=== PATIENT | male | born 1970 | race Caucasian/White ===

== ENCOUNTER 2020-07-12 12:56 | Inpatient (IN) | payer MEDICARE, MEDICAID ==
[~2020-07-12] VITALS: Ht 188 cm; Wt 101.8 kg
[2020-07-12] MEDS ORDERED: SODIUM CHLORIDE 0.9% 1,000 ML IV ONE (13:15)
[2020-07-12] MEDS ORDERED: PIPERACILLIN-TAZOB 3.375GM 100 ML IV ONE (13:15)
[2020-07-12] MEDS ORDERED: ACETAMINOPHEN 325 MG TAB PO ONE (13:45)
[2020-07-12 15:12] LABS: Basophils # (auto) 0 10 ^3/uL (0-0.2); Basophils % (auto) 0.2 % (0.0-2.0); Eosinophils # (auto) 0 10 ^3/uL (0-0.8); Eosinophils % (auto) 0.1 % (0.0-7.0); Hematocrit 32.9 % (41.0-53.0); Hemoglobin 11.2 g/dL (13.5-17.5); Lymphocytes # (auto) 0.8 10 ^3/uL (0.4-5.4); Mean Corpuscular Hemoglobin 27.2 pg (28.0-32.0); Mean Corpuscular Hgb Conc. 34.1 g/dL (32.0-36.0); Mean Corpuscular Volume 79.9 fL (80.0-100.0); Monocytes # (auto) 1.2 10 ^3/uL (0-1.3); Monocytes % (auto) 8.9 % (0.0-12.0); Neutrophils % (auto) 84.8 % (37.0-80.0); Nucleated Red Blood Cells % 0.1 %; Platelet Count (auto) 275 10^3/uL (140-450); Red Blood Cells 4.11 10^6/uL (4.5-5.90); Red Cell Distribution Width 13.6 % (11.8-14.3); White Blood Cell 12.9 10^3/uL (4.4-10.8)
[2020-07-12 15:27] LABS: INR 1.28 (0.9-1.15); Partial Thromboplastin Time 29.6 sec (23.0-31.2)
[2020-07-12] MEDS ORDERED: ONDANSETRON HCL 4 MG/2 ML VIAL IV ONE (15:30)
[2020-07-12 15:34] LABS: Alanine Aminotransferase 32 U/L (16-61); Albumin 1.9 g/dL (3.4-5.0); Anion Gap 8 (5-15); Aspartate Aminotransferase 27 U/L (15-37); BUN/Creatinine Ratio 15.4; Blood Urea Nitrogen 16 mg/dL (7-18); Calcium 8.2 mg/dL (8.5-10.1); Carbon Dioxide 27 mmol/L (21-32); Chloride 98 mmol/L (98-107); GFR African American 97 mL/min; GFR Non-African American 80 mL/min; Glucose 89 mg/dL (74-106); Sodium 133 mmol/L (136-145)
[2020-07-12 15:39] LABS: Alkaline Phosphatase 341 U/L (45-117); Bilirubin, Total 0.7 mg/dL (0.2-1.0); Total Protein 6.8 g/dL (6.4-8.2)
[2020-07-12] MEDS ORDERED: TEMAZEPAM 15 MG CAP PO PRN (17:15)
[2020-07-12] MEDS ORDERED: NITROGLYCERIN 0.4 MG SL TAB SL PRN (17:15)
[2020-07-12] MEDS ORDERED: MORPHINE SULF INJ 2 MG/ML SYRINGE 1ML IV PRN (17:15)
[2020-07-12] MEDS ORDERED: DOCUSATE SOD 100 MG CAP PO PRN (17:15)
[2020-07-12] MEDS ORDERED: DEXTROSE (50%) 50ML SYRG IV PRN (17:15)
[2020-07-12] MEDS ORDERED: MORPHINE SULFATE 4 MG/ML SYR/VIAL IV PRN (17:15)
[2020-07-12] MEDS: ONDANSETRON HCL 4 MG/2 ML VIAL IV PRN (21:54)
[2020-07-12] MEDS: InsuLIN REG 1unit/0.01ml Soln (100units/ml) SC SCH (22:00)
[2020-07-12] MEDS: FAMOTIDINE 20 MG TAB PO SCH (23:30)
[2020-07-12] MEDS: ATORVASTATIN 20 MG TAB PO SCH (23:30)
[2020-07-12] MEDS: PIPERACILLIN-TAZOB 3.375GM 100 ML IV SCH (23:30)
[2020-07-12] MEDS: ACCU-CHEK COMFORT CURVE STRIP VI SCH (23:30)
[2020-07-12] MEDS: ASCORBIC ACID 500 MG TAB PO SCH (23:31)
[2020-07-13] MEDS: ACETAMINOPHEN 325 MG TAB PO PRN (00:29)
[2020-07-13 04:44] VITALS: BP 125/72
[2020-07-13 05:00] VITALS: BP 125/72
[2020-07-13] MEDS: PIPERACILLIN-TAZOB 3.375GM 100 ML IV SCH ×3 (06:47→21:17)
[2020-07-13] MEDS: InsuLIN REG 1unit/0.01ml Soln (100units/ml) SC SCH ×4 (06:47→21:20)
[2020-07-13] MEDS: ACCU-CHEK COMFORT CURVE STRIP VI SCH ×4 (06:47→21:19)
[2020-07-13] MEDS ORDERED: ASPI81CH59 PO (08:58)
[2020-07-13] MEDS ORDERED: PREG150C PO (08:58)
[2020-07-13] MEDS ORDERED: ATOR20TA50 PO (08:58)
[2020-07-13] MEDS ORDERED: ENAL2.5T7 PO (08:58)
[2020-07-13] MEDS ORDERED: RIVA10TA PO (08:58)
[2020-07-13 09:00] VITALS: BP 112/61
[2020-07-13] MEDS: ASCORBIC ACID 500 MG TAB PO SCH ×2 (09:33→21:18)
[2020-07-13] MEDS: MULTIPLE VITAMIN TAB PO SCH (09:33)
[2020-07-13] MEDS: FAMOTIDINE 20 MG TAB PO SCH ×2 (09:33→21:18)
[2020-07-13] MEDS: ZINC SULFATE 220mg CAP or TAB PO SCH (09:33)
[2020-07-13 09:37] LABS: Basophils # (auto) 0 10 ^3/uL (0-0.2); Basophils % (auto) 0.2 % (0.0-2.0); Eosinophils # (auto) 0.2 10 ^3/uL (0-0.8); Eosinophils % (auto) 1.5 % (0.0-7.0); Hematocrit 30.4 % (41.0-53.0); Hemoglobin 10.6 g/dL (13.5-17.5); Lymphocytes # (auto) 1.1 10 ^3/uL (0.4-5.4); Lymphocytes % (auto) 8.7 % (10.0-50.0); Mean Corpuscular Hgb Conc. 34.9 g/dL (32.0-36.0); Mean Corpuscular Volume 80.2 fL (80.0-100.0); Monocytes # (auto) 1.1 10 ^3/uL (0-1.3); Monocytes % (auto) 8.7 % (0.0-12.0); Neutrophils % (auto) 80.9 % (37.0-80.0); Platelet Count (auto) 260 10^3/uL (140-450); Red Blood Cells 3.79 10^6/uL (4.5-5.90); Red Cell Distribution Width 13.9 % (11.8-14.3); White Blood Cell 12.3 10^3/uL (4.4-10.8)
[2020-07-13 09:45] LABS: Albumin 1.7 g/dL (3.4-5.0); Potassium 3.7 mmol/L (3.5-5.1)
[2020-07-13 09:51] LABS: BUN/Creatinine Ratio 16.3; Bilirubin, Total 0.7 mg/dL (0.2-1.0); Total Protein 6.4 g/dL (6.4-8.2)
[2020-07-13] MEDS: HYDROmorphone HCL 2 MG/ML VL IV PRN ×3 (11:24→21:19)
[2020-07-13] MEDS: ONDANSETRON HCL 4 MG/2 ML VIAL IV PRN ×3 (11:24→21:19)
[2020-07-13] MEDS ORDERED: PREGABALIN CAPSULE 75 MG CAP PO ONE (12:00)
[2020-07-13 13:00] VITALS: BP 122/74
[2020-07-13 17:00] VITALS: BP 121/68
[2020-07-13] MEDS: PREGABALIN CAPSULE 75 MG CAP PO SCH (21:18)
[2020-07-13] MEDS: ATORVASTATIN 20 MG TAB PO SCH (21:18)
[2020-07-13 21:59] VITALS: BP 121/66
[2020-07-13 22:37] LABS: Urine Bacteria NONE SEEN /hpf (None Seen); Urine Blood 1+ /uL (Negative); Urine Specific Gravity 1.034 (1.001-1.035); Urine WBC 3 /hpf (0 - 3)
[2020-07-14] MEDS: HYDROmorphone HCL 2 MG/ML VL IV PRN ×5 (01:35→19:45)
[2020-07-14] MEDS: ONDANSETRON HCL 4 MG/2 ML VIAL IV PRN (01:35)
[2020-07-14 05:19] VITALS: BP 115/69
[2020-07-14] MEDS: PIPERACILLIN-TAZOB 3.375GM 100 ML IV SCH ×3 (05:53→22:01)
[2020-07-14] MEDS: ACCU-CHEK COMFORT CURVE STRIP VI SCH ×4 (06:33→21:45)
[2020-07-14] MEDS: InsuLIN REG 1unit/0.01ml Soln (100units/ml) SC SCH ×4 (06:34→22:01)
[2020-07-14 08:00] VITALS: BP 119/67
[2020-07-14] MEDS: PREGABALIN CAPSULE 75 MG CAP PO SCH ×2 (10:47→21:45)
[2020-07-14] MEDS: MULTIPLE VITAMIN TAB PO SCH (10:47)
[2020-07-14] MEDS: ZINC SULFATE 220mg CAP or TAB PO SCH (10:47)
[2020-07-14] MEDS: FAMOTIDINE 20 MG TAB PO SCH ×2 (10:48→21:45)
[2020-07-14] MEDS: ENALAPRIL MALEATE 2.5 MG TAB PO SCH (10:48)
[2020-07-14] MEDS: ASCORBIC ACID 500 MG TAB PO SCH ×2 (10:48→21:45)
[2020-07-14 11:08] LABS: Basophils # (auto) 0 10 ^3/uL (0-0.2); Basophils % (auto) 0.2 % (0.0-2.0); Eosinophils # (auto) 0.3 10 ^3/uL (0-0.8); Eosinophils % (auto) 2.9 % (0.0-7.0); Hematocrit 30.2 % (41.0-53.0); Hemoglobin 10.4 g/dL (13.5-17.5); Lymphocytes # (auto) 1.4 10 ^3/uL (0.4-5.4); Lymphocytes % (auto) 12.9 % (10.0-50.0); Mean Corpuscular Hemoglobin 27.6 pg (28.0-32.0); Mean Corpuscular Hgb Conc. 34.4 g/dL (32.0-36.0); Mean Corpuscular Volume 80.4 fL (80.0-100.0); Monocytes # (auto) 1.2 10 ^3/uL (0-1.3); Monocytes % (auto) 10.9 % (0.0-12.0); Neutrophils # (auto) 7.9 10 ^3/uL (1.6-8.6); Neutrophils % (auto) 73.1 % (37.0-80.0); Platelet Count (auto) 323 10^3/uL (140-450); Red Blood Cells 3.75 10^6/uL (4.5-5.90); White Blood Cell 10.8 10^3/uL (4.4-10.8)
[2020-07-14 12:52] VITALS: BP 130/74
[2020-07-14 13:03] LABS: BUN/Creatinine Ratio 14.4; Calcium 8.5 mg/dL (8.5-10.1); Magnesium 2.5 mg/dL (1.6-2.6)
[2020-07-14 16:40] VITALS: BP 123/76
[2020-07-14 21:28] VITALS: BP 127/69
[2020-07-14] MEDS: ATORVASTATIN 20 MG TAB PO SCH (21:45)
[2020-07-15] MEDS: HYDROmorphone HCL 2 MG/ML VL IV PRN ×6 (00:56→23:10)
[2020-07-15 04:36] VITALS: BP 117/63
[2020-07-15] MEDS: PIPERACILLIN-TAZOB 3.375GM 100 ML IV SCH ×3 (05:29→21:09)
[2020-07-15] MEDS: ACCU-CHEK COMFORT CURVE STRIP VI SCH ×4 (06:32→21:49)
[2020-07-15] MEDS: InsuLIN REG 1unit/0.01ml Soln (100units/ml) SC SCH ×4 (06:39→21:47)
[2020-07-15] MEDS: ACETAMINOPHEN 325 MG TAB PO PRN (08:00)
[2020-07-15 09:00] VITALS: BP 109/58
[2020-07-15] MEDS: FAMOTIDINE 20 MG TAB PO SCH ×2 (09:28→21:09)
[2020-07-15] MEDS: ZINC SULFATE 220mg CAP or TAB PO SCH (09:29)
[2020-07-15] MEDS: MULTIPLE VITAMIN TAB PO SCH (09:29)
[2020-07-15] MEDS: ENALAPRIL MALEATE 2.5 MG TAB PO SCH (09:29)
[2020-07-15] MEDS: ASCORBIC ACID 500 MG TAB PO SCH ×2 (09:29→21:09)
[2020-07-15] MEDS: PREGABALIN CAPSULE 75 MG CAP PO SCH ×2 (09:30→21:09)
[2020-07-15 13:00] VITALS: BP 124/75
[2020-07-15 17:00] VITALS: BP 129/71
[2020-07-15] MEDS: ATORVASTATIN 20 MG TAB PO SCH (21:09)
[2020-07-15 22:00] VITALS: BP 154/76
[2020-07-16 05:00] VITALS: BP 146/71
[2020-07-16] MEDS: HYDROmorphone HCL 2 MG/ML VL IV PRN ×4 (05:17→21:32)
[2020-07-16] MEDS: PIPERACILLIN-TAZOB 3.375GM 100 ML IV SCH ×3 (05:25→21:48)
[2020-07-16] MEDS: InsuLIN REG 1unit/0.01ml Soln (100units/ml) SC SCH ×4 (06:25→22:03)
[2020-07-16] MEDS: ACCU-CHEK COMFORT CURVE STRIP VI SCH ×4 (06:25→21:49)
[2020-07-16] MEDS: ZINC SULFATE 220mg CAP or TAB PO SCH (08:53)
[2020-07-16] MEDS: MULTIPLE VITAMIN TAB PO SCH (08:53)
[2020-07-16] MEDS: ASCORBIC ACID 500 MG TAB PO SCH ×2 (08:53→21:48)
[2020-07-16] MEDS: PREGABALIN CAPSULE 75 MG CAP PO SCH ×2 (09:01→21:48)
[2020-07-16] MEDS: ENALAPRIL MALEATE 2.5 MG TAB PO SCH (09:01)
[2020-07-16] MEDS: FAMOTIDINE 20 MG TAB PO SCH ×2 (09:01→21:48)
[2020-07-16] MEDS: HYDROcodone-ACET 5/325MG TAB PO PRN (09:02)
[2020-07-16 09:42] VITALS: BP 142/78
[2020-07-16] MEDS ORDERED: BUPIVACAINE 0.5% MPF INJ 30ML SDV IJ ONE (10:29)
[2020-07-16] MEDS ORDERED: LIDOCAINE 1% HCL (LOCAL ANESTH.) INJ 20ML MDV ONE (10:29)
[2020-07-16] MEDS ORDERED: DAKINS HALF STR 0.25% (NaHypochlorite) 473 ML TOPICAL SOL TOP ONE (10:45)
[2020-07-16 11:12] LABS: Basophils # (auto) 0 10 ^3/uL (0-0.2); Basophils % (auto) 0.4 % (0.0-2.0); Eosinophils # (auto) 0.4 10 ^3/uL (0-0.8); Eosinophils % (auto) 4.5 % (0.0-7.0); Hemoglobin 9.9 g/dL (13.5-17.5); Lymphocytes # (auto) 1.8 10 ^3/uL (0.4-5.4); Lymphocytes % (auto) 18.1 % (10.0-50.0); Mean Corpuscular Hemoglobin 27.3 pg (28.0-32.0); Mean Corpuscular Volume 80.2 fL (80.0-100.0); Monocytes # (auto) 1.1 10 ^3/uL (0-1.3); Monocytes % (auto) 11.2 % (0.0-12.0); Neutrophils # (auto) 6.4 10 ^3/uL (1.6-8.6); Neutrophils % (auto) 65.8 % (37.0-80.0); Platelet Count (auto) 377 10^3/uL (140-450); Red Blood Cells 3.62 10^6/uL (4.5-5.90); Red Cell Distribution Width 14.2 % (11.8-14.3); White Blood Cell 9.8 10^3/uL (4.4-10.8)
[2020-07-16 11:35] LABS: Potassium 4.4 mmol/L (3.5-5.1)
[2020-07-16 11:44] LABS: INR 1.16 (0.9-1.15); Partial Thromboplastin Time 26.6 sec (23.0-31.2)
[2020-07-16] MEDS ORDERED: SODIUM CHLORIDE LOCK 10 ML ONE (11:44)
[2020-07-16] MEDS ORDERED: ONDANSETRON HCL 4 MG/2 ML VIAL ONE (11:44)
[2020-07-16] MEDS ORDERED: PROPOFOL 10 MG/ML 20 ML IV ONE (11:44)
[2020-07-16] MEDS ORDERED: fentaNYL CITRATE 100 MCG/2 ML VL ONE (11:44)
[2020-07-16] MEDS ORDERED: MIDAZOLAM HCL 1MG/1ML-2 ML VIAL ONE (11:44)
[2020-07-16 11:47] LABS: Albumin 1.6 g/dL (3.4-5.0); BUN/Creatinine Ratio 16.3; Bilirubin, Total 0.5 mg/dL (0.2-1.0); Calcium 8.1 mg/dL (8.5-10.1); Magnesium 2.2 mg/dL (1.6-2.6); Total Protein 6.5 g/dL (6.4-8.2)
[2020-07-16 11:58] LABS: INR 1.14 (0.9-1.15)
[2020-07-16] MEDS ORDERED: ceFAZolin 1GM/50ML 100 ML IV ONE (12:14)
[2020-07-16] MEDS ORDERED: HYDROmorphone HCL 2 MG/ML VL IV PRN (12:15)
[2020-07-16] MEDS ORDERED: ACCU-CHEK COMFORT CURVE STRIP VI ONE (12:15)
[2020-07-16] MEDS ORDERED: MORPHINE SULFATE 4 MG/ML SYR/VIAL IV PRN (12:15)
[2020-07-16 12:55] VITALS: BP 145/85
[2020-07-16 17:00] VITALS: BP 116/71
[2020-07-16] MEDS: ATORVASTATIN 20 MG TAB PO SCH (21:48)
[2020-07-16 22:00] VITALS: BP 125/74
[2020-07-17] MEDS: HYDROmorphone HCL 2 MG/ML VL IV PRN ×4 (01:36→22:00)
[2020-07-17 05:00] VITALS: BP 119/73
[2020-07-17] MEDS: PIPERACILLIN-TAZOB 3.375GM 100 ML IV SCH ×3 (05:44→22:03)
[2020-07-17] MEDS: ACCU-CHEK COMFORT CURVE STRIP VI SCH ×4 (06:47→22:03)
[2020-07-17] MEDS: InsuLIN REG 1unit/0.01ml Soln (100units/ml) SC SCH ×4 (07:00→22:00)
[2020-07-17] MEDS ORDERED: IODIXANOL 320MG/ML 100ML BTL IV ONE ×2 (07:47→09:07)
[2020-07-17] MEDS ORDERED: LIDOCAINE 2%HCL (LOCAL ANESTH.) INJ 20ML MDV ONE ×2 (07:47→08:44)
[2020-07-17] MEDS ORDERED: IOHEXOL 350 MG/ML 100ML IJ ONE (08:44)
[2020-07-17] MEDS ORDERED: ANGIOMAX 250 MG VIAL IV ONE (08:51)
[2020-07-17] MEDS ORDERED: fentaNYL CITRATE 100 MCG/2 ML VL ONE (08:51)
[2020-07-17] MEDS ORDERED: SODIUM CHL 0.9% 50 ML ONE (08:52)
[2020-07-17] MEDS ORDERED: MIDAZOLAM HCL 1MG/1ML-2 ML VIAL ONE (08:52)
[2020-07-17] MEDS ORDERED: diphenhdrAMINE HCL 50 MG/1 ML VL ONE (09:35)
[2020-07-17] MEDS: ZINC SULFATE 220mg CAP or TAB PO SCH (10:00)
[2020-07-17] MEDS: ASCORBIC ACID 500 MG TAB PO SCH ×2 (10:00→22:03)
[2020-07-17] MEDS: FAMOTIDINE 20 MG TAB PO SCH ×2 (10:00→22:03)
[2020-07-17] MEDS: ENALAPRIL MALEATE 2.5 MG TAB PO SCH (10:00)
[2020-07-17] MEDS: MULTIPLE VITAMIN TAB PO SCH (10:00)
[2020-07-17] MEDS: PREGABALIN CAPSULE 75 MG CAP PO SCH ×2 (10:00→22:03)
[2020-07-17 13:00] VITALS: BP 150/70
[2020-07-17] MEDS ORDERED: LIDOCAINE 1% (LOCAL ANESTH.) PF 5ml SDV ID ONE (14:45)
[2020-07-17 14:50] LABS: Basophils # (auto) 0 10 ^3/uL (0-0.2); Basophils % (auto) 0.3 % (0.0-2.0); Eosinophils # (auto) 0.3 10 ^3/uL (0-0.8); Eosinophils % (auto) 3.8 % (0.0-7.0); Hematocrit 26.7 % (41.0-53.0); Lymphocytes # (auto) 1.9 10 ^3/uL (0.4-5.4); Lymphocytes % (auto) 21.4 % (10.0-50.0); Mean Corpuscular Hemoglobin 27.3 pg (28.0-32.0); Mean Corpuscular Hgb Conc. 33.6 g/dL (32.0-36.0); Mean Corpuscular Volume 81.2 fL (80.0-100.0); Monocytes # (auto) 0.8 10 ^3/uL (0-1.3); Monocytes % (auto) 8.8 % (0.0-12.0); Neutrophils # (auto) 5.9 10 ^3/uL (1.6-8.6); Neutrophils % (auto) 65.7 % (37.0-80.0); Platelet Count (auto) 408 10^3/uL (140-450); Red Blood Cells 3.29 10^6/uL (4.5-5.90); Red Cell Distribution Width 14.2 % (11.8-14.3); White Blood Cell 8.9 10^3/uL (4.4-10.8)
[2020-07-17 15:08] LABS: BUN/Creatinine Ratio 12.4; Calcium 8.1 mg/dL (8.5-10.1); Magnesium 2.2 mg/dL (1.6-2.6); Potassium 4.3 mmol/L (3.5-5.1)
[2020-07-17 17:00] VITALS: BP 140/70
[2020-07-17 22:00] VITALS: BP 134/81
[2020-07-17] MEDS: SODIUM CHLOR 0.9% PF (SALINE LOCK) 10ML VIAL/SYR IV SCH (22:02)
[2020-07-17] MEDS: ATORVASTATIN 20 MG TAB PO SCH (22:03)
[2020-07-18] MEDS: HYDROmorphone HCL 2 MG/ML VL IV PRN ×6 (02:51→23:52)
[2020-07-18 05:00] VITALS: BP 148/81
[2020-07-18] MEDS: PIPERACILLIN-TAZOB 3.375GM 100 ML IV SCH ×3 (05:21→22:00)
[2020-07-18] MEDS: ACCU-CHEK COMFORT CURVE STRIP VI SCH ×4 (06:17→22:01)
[2020-07-18] MEDS: InsuLIN REG 1unit/0.01ml Soln (100units/ml) SC SCH ×4 (06:43→21:38)
[2020-07-18 09:00] VITALS: BP 155/85
[2020-07-18] MEDS: PREGABALIN CAPSULE 75 MG CAP PO SCH ×2 (09:56→22:01)
[2020-07-18] MEDS: ZINC SULFATE 220mg CAP or TAB PO SCH (09:56)
[2020-07-18] MEDS: MULTIPLE VITAMIN TAB PO SCH (09:57)
[2020-07-18] MEDS: ENALAPRIL MALEATE 2.5 MG TAB PO SCH (09:57)
[2020-07-18] MEDS: FAMOTIDINE 20 MG TAB PO SCH ×2 (09:57→22:01)
[2020-07-18] MEDS: ASCORBIC ACID 500 MG TAB PO SCH ×2 (09:57→22:01)
[2020-07-18] MEDS: SODIUM CHLOR 0.9% PF (SALINE LOCK) 10ML VIAL/SYR IV SCH ×2 (10:00→21:27)
[2020-07-18] MEDS: ONDANSETRON HCL 4 MG/2 ML VIAL IV PRN (11:51)
[2020-07-18 13:00] VITALS: BP 154/91
[2020-07-18 17:00] VITALS: BP 134/75
[2020-07-18 22:00] VITALS: BP 149/88
[2020-07-18] MEDS: ATORVASTATIN 20 MG TAB PO SCH (22:00)
[2020-07-19] MEDS: HYDROmorphone HCL 2 MG/ML VL IV PRN (04:02)
[2020-07-19 05:00] VITALS: BP 152/85
[2020-07-19] MEDS: PIPERACILLIN-TAZOB 3.375GM 100 ML IV SCH ×2 (05:51→16:30)
[2020-07-19] MEDS: ACCU-CHEK COMFORT CURVE STRIP VI SCH ×3 (05:51→18:06)
[2020-07-19] MEDS: InsuLIN REG 1unit/0.01ml Soln (100units/ml) SC SCH ×3 (06:19→18:07)
[2020-07-19] MEDS: HYDROcodone-ACET 5/325MG TAB PO PRN (07:47)
[2020-07-19 09:00] VITALS: BP 143/88
[2020-07-19] MEDS: SODIUM CHLOR 0.9% PF (SALINE LOCK) 10ML VIAL/SYR IV SCH (10:06)
[2020-07-19] MEDS: ZINC SULFATE 220mg CAP or TAB PO SCH (10:06)
[2020-07-19] MEDS: FAMOTIDINE 20 MG TAB PO SCH (10:07)
[2020-07-19] MEDS: MULTIPLE VITAMIN TAB PO SCH (10:07)
[2020-07-19] MEDS: ENALAPRIL MALEATE 2.5 MG TAB PO SCH (10:07)
[2020-07-19] MEDS: PREGABALIN CAPSULE 75 MG CAP PO SCH (10:07)
[2020-07-19] MEDS: ASCORBIC ACID 500 MG TAB PO SCH (10:08)
[2020-07-19 13:00] VITALS: BP 159/87
[2020-07-19] MEDS ORDERED: DAKINS HALF STR 0.25% (NaHypochlorite) 473 ML TOPICAL SOL TOP ONE (14:00)
[2020-07-19 15:56] VITALS: BP 143/88
[2020-07-19 17:00] VITALS: BP 157/98
== END 2020-07-19 19:05 | disposition home health service (06) | DRG 253 ==
LOC: ER 12:56 → TELE 12:57 → DOU IN ADS 07-13 04:44
PROVIDERS: ADMIT Nurse Practitioner; ATTEND Nurse Practitioner
PROC: 0Y6R0Z0 Detachment at Right 2nd Toe, Complete, Open Approach (ICD-10-PCS; principal; 2020-07-16 12:18)
PROC: 047P3ZZ Dilation of Right Anterior Tibial Artery, Percutaneous Approach (ICD-10-PCS; 2020-07-17)
PROC: 02HV33Z Insertion of Infusion Device into Superior Vena Cava, Percutaneous Approach (ICD-10-PCS; 2020-07-17)
PROC: B41GYZZ Fluoroscopy of Left Lower Extremity Arteries using Other Contrast (ICD-10-PCS; 2020-07-17)
PROC: B41FYZZ Fluoroscopy of Right Lower Extremity Arteries using Other Contrast (ICD-10-PCS; 2020-07-17)
DX: E11.52 Type 2 diabetes mellitus with diabetic peripheral angiopathy with gangrene (principal); L03.115 Cellulitis of right lower limb; N17.9 Acute kidney failure, unspecified; M86.8X7 Other osteomyelitis, ankle and foot; I96 Gangrene, not elsewhere classified; E11.40 Type 2 diabetes mellitus with diabetic neuropathy, unspecified; E11.621 Type 2 diabetes mellitus with foot ulcer; L97.511 Non-pressure chronic ulcer of other part of right foot limited to breakdown of skin; E11.622 Type 2 diabetes mellitus with other skin ulcer; E78.5 Hyperlipidemia, unspecified; I10 Essential (primary) hypertension; Z79.01 Long term (current) use of anticoagulants; Z89.421 Acquired absence of other right toe(s); E88.09 Other disorders of plasma-protein metabolism, not elsewhere classified; E11.69 Type 2 diabetes mellitus with other specified complication; Z20.822 Contact with and (suspected) exposure to COVID-19
CPT/HCPCS: 36415; 36569; 37228; 71045; 73700; 75716; 80048; 80053; 80061; 81001; 82962; 83036; 83605; 83735; 84443; 84484; 85025; 85610; 85730; 86850; 86900; 86901; 87040; 87070; 87075; 87077; 87086; 87186; 87205; 87426; 93306; 93926; 99152; 99153; G0378; J0690; J1815; J2001; J2250; J2405; J2543; J2704; J3490; Q9967